=== PATIENT | male | born 1995 | race Caucasian/White ===

== ENCOUNTER 2019-07-12 19:58 | Emergency (ER) | payer MEDICAID, OTHER ==
[~2019-07-12] VITALS: Ht 167.6 cm; Wt 71.0 kg
[2019-07-12 20:01] VITALS: BP 164/99
[2019-07-12] MEDS ORDERED: ACETAMINOPHEN 325MG TABLET PO STA (20:32)
[2019-07-12] MEDS ORDERED: SODIUM CHLORIDE 0.9% 1,000 ML IV ONE (20:32)
[2019-07-12 20:50] LABS: BASOPHILS % 0.4 % (0.0-2.0); EOSINOPHILS % 0.9 % (0.0-5.0); HEMATOCRIT. 46.6 % (42.0-52.0); HEMOGLOBIN. 15.9 g/dL (14.0-18.0); LYMPHOCYTES % 24.7 % (20.0-50.0); MEAN CORPUSCULAR HEMOGLOBIN 29.7 pg (28.0-32.0); MEAN CORPUSCULAR VOLUME 87.2 fL (80.0-94.0); MONOCYTES % 7.8 % (2.0-8.0); NEUTROPHILS % 66.2 % (40.0-76.0); PLATELET 262 x1000/uL (130-400); RED BLOOD CELL COUNT 5.34 mill/uL (4.7-6.1); RED CELL DISTRIBUTION WIDTH 13.2 % (11.6-14.6)
[2019-07-12 20:57] LABS: CHLORIDE 101 mEq/L (98-107)
[2019-07-12 21:00] LABS: ETHANOL BLOOD < 10 mg/dL
[2019-07-12 22:21] LABS: CREATINE KINASE 198 IU/L (39-308)
== END 2019-07-12 21:00 | disposition left against medical advice (07) ==
LOC: ER 19:58
DX: R07.89 Other chest pain (principal); R42 Dizziness and giddiness; R00.2 Palpitations; R10.84 Generalized abdominal pain; Z53.29 Procedure and treatment not carried out because of patient's decision for other reasons
CPT/HCPCS: 36415; 71045; 80053; 80320; 82550; 83690; 83880; 84484; 85025; 93005; 99285; J7030; G0480